=== PATIENT | male | born 1960 | race Caucasian/White ===

== ENCOUNTER → 2019-05-27 | Outpatient (CLI) | payer OTHER ==
--- NOTE | 2019-05-27 14:01 | PCVCIMAG ---
APPROVED REPORT Study performed: 05/27/2019 11:42:43 Exam: Stress Echocardiogram Indication: CAD Patient Location: Echo lab Stress Nurse: Valeri Tejada RN Room #: 2 Status: routine Ht: 6 ft 0 in HR: 86 bpm BP: 122/92 mmHg Rhythm: NSR Medical History Medical History: CAD non obstructive Cardiac Risk Factors: FHX of CAD Previous Cardiac Procedures: none Pretest Chest Pain Characteristics: No chest pain Exercise History: Physically active Procedure The patient underwent an Exercise Stress Test using the Umberto Protocol. Blood pressure, heart rate, and EKG were monitored. An Echocardiogram was performed by charge preparation technician in four stages in quad fashion. At peak stress, four selected images were obtained and placed side by side with resting images for comparison. Stress Test Details Stress Test: Exercise stress testing was performed using a Umberto protocol. HR Resting HR: 86 bpmMax Heart Rate (APMHR): 163 bpm Max HR Achieved: 179 bpmTarget HR (85% APMHR): 138 bpm % of APMHR: 109 Recovery HR: 107 bpm HR response to stress: Normal HR response to stress BP Resting BP: 122/92 mmHg Max BP: 148/88 mmHg Recovery BP: 122/78 mmHg BP response to stress: Normal blood pressure response to stress. ECG Resting ECG: Sinus Rhythm Stress ECG: Sinus Rhythm ST Change: Non-ischemic Maximum ST Deviation: 0.85 mm Arrhythmia: rare PAC, PVC Recovery ECG: Sinus Rhythm Recovery ST Change: Non-ischemic Recovery ST Deviation: 1.15 mm Recovery Arrhythmia: None Clinical Reason for Termination: Maximal effort Stress Symptoms: none Exercise duration: 13 min 37 sec Highest Stage Achieved: Stage 5: 5.0 mph at 18% grade. Exercise capacity: 17.2 METs Overall Exercise Capacity for Age: Excellent Scale: Active Angina Score: None No complications. Stress ECG Conclusion Acosta Treadmill Score is 8.8 which is Low risk. Pre-Stress Echo The resting Echocardiogram showed normal left ventricular contractility with an estimated Ejection Fraction of about 55-60%. Normal wall motion in all segments on baseline images. Post-Stress Echo The stress Echocardiogram showed normal left ventricular contractility with an estimated Ejection Fraction of about 65-70%. Normal augmentation of wall motion in all segments on post stress images. Clinical No clinical or ECG evidence for ischemia. Conclusion Clinical Response: Non-ischemic Exercise Capacity: Superior Stress ECG Response: Non-ischemic Stress Echo Images: Non-ischemic No clinical, EKG or echocardiographic evidence for ischemia. No echocardiographic evidence for exercise induced ischemia. Normal stress echocardiogram with maximal exercise stress. Normal color doppler. No regurgitation or stenosis present on pulmonic, mitral, tricuspid and aortic valves. <Conclusion> No clinical, EKG or echocardiographic evidence for ischemia. No echocardiographic evidence for exercise induced ischemia. Normal stress echocardiogram with maximal exercise stress. Normal color doppler. No regurgitation or stenosis present on pulmonic, mitral, tricuspid and aortic valves.
== END | disposition home or self-care (01) ==
LOC: PCVCIMAG 11:38
PROVIDERS: ATTEND Internal Medicine Cardiovascular Disease
DX: R93.1 Abnormal findings on diagnostic imaging of heart and coronary circulation (principal); E78.00 Pure hypercholesterolemia, unspecified; R78.5 Finding of other psychotropic drug in blood; Z82.49 Family history of ischemic heart disease and other diseases of the circulatory system; Z72.89 Other problems related to lifestyle
CPT/HCPCS: 93325; 93351